=== PATIENT | male | born 1945 | race Native Hawaiian/Other Pacific Islander ===

== ENCOUNTER 2016-10-30 10:42 | Outpatient (CLI) | payer OTHER | END 2016-10-30 12:00 | disposition home or self-care (01) | LOC: RAD 10:42 → LAB 10:42 → RAD 12:00 | DX: E11.9 Type 2 diabetes mellitus without complications (principal); M25.512 Pain in left shoulder | CPT/HCPCS: 36415; 83036 ==

== ENCOUNTER 2018-06-26 09:32 | Outpatient (CLI) | payer OTHER | END 2018-06-26 22:48 | disposition home or self-care (01) | LOC: RAD 09:32 | DX: R06.02 Shortness of breath (principal) ==

== ENCOUNTER 2018-07-07 08:56 | Outpatient (CLI) | payer OTHER | END 2018-07-07 19:12 | disposition home or self-care (01) | LOC: RESP 08:56 | DX: R06.02 Shortness of breath (principal) | CPT/HCPCS: 93306 ==

== ENCOUNTER 2018-12-03 08:43 | Day surgery (SDC) | payer OTHER ==
[2018-12-03 09:30] LABS: PLATELET COUNT 168 K/uL (142-355)
[2018-12-03 09:38] LABS: POTASSIUM 3.8 mmol/L (3.6-5.2)
== END 2018-12-03 12:25 | disposition home or self-care (01) ==
LOC: OR 08:43
PROVIDERS: Internal Medicine
PROC: 0DJD8ZZ Inspection of Lower Intestinal Tract, Via Natural or Artificial Opening Endoscopic (ICD-10-PCS; principal; 2018-12-03)
DX: K59.09 Other constipation (principal); K57.30 Diverticulosis of large intestine without perforation or abscess without bleeding
CPT/HCPCS: 80053; 85027

== ENCOUNTER 2019-08-10 13:34 | Outpatient (CLI) | payer OTHER ==
[2019-08-10 14:01] LABS: PLATELET COUNT 174 K/uL (142-355)
[2019-08-10 14:30] LABS: POTASSIUM 4.4 mmol/L (3.6-5.2)
== END 2019-08-10 19:05 | disposition home or self-care (01) ==
LOC: LAB 13:34
PROVIDERS: Nurse Practitioner Family
DX: E11.9 Type 2 diabetes mellitus without complications (principal); E78.49 Other hyperlipidemia; Z12.5 Encounter for screening for malignant neoplasm of prostate; N40.0 Benign prostatic hyperplasia without lower urinary tract symptoms; E55.9 Vitamin D deficiency, unspecified; R06.02 Shortness of breath
CPT/HCPCS: 80053; 80061; 82306; 83036; 84153; 84443; 85027

== ENCOUNTER 2020-08-22 09:43 | Outpatient (CLI) | payer OTHER | END 2020-08-22 20:15 | disposition home or self-care (01) | LOC: US 09:43 | PROVIDERS: ATTEND Internal Medicine | DX: Z00.00 Encounter for general adult medical examination without abnormal findings (principal); I65.29 Occlusion and stenosis of unspecified carotid artery ==

== ENCOUNTER 2021-09-26 16:18 | Outpatient (CLI) | payer OTHER ==
[2021-09-26 17:02] LABS: PLATELET COUNT 130 K/uL (142-355)
[2021-09-26 17:28] LABS: POTASSIUM 4.6 mmol/L (3.6-5.2)
== END 2021-09-26 21:44 | disposition home or self-care (01) ==
LOC: LAB 16:18
PROVIDERS: ATTEND Internal Medicine
DX: E11.9 Type 2 diabetes mellitus without complications (principal); E78.49 Other hyperlipidemia; K21.9 Gastro-esophageal reflux disease without esophagitis; I65.29 Occlusion and stenosis of unspecified carotid artery; E55.9 Vitamin D deficiency, unspecified; D51.0 Vitamin B12 deficiency anemia due to intrinsic factor deficiency; D50.8 Other iron deficiency anemias; R53.83 Other fatigue; M79.10 Myalgia, unspecified site; R39.12 Poor urinary stream; R68.89 Other general symptoms and signs
CPT/HCPCS: 80053; 80061; 82306; 82607; 83036; 83540; 84153; 84439; 84443; 85027

== ENCOUNTER 2022-06-21 10:44 | Outpatient (CLI) | payer OTHER ==
[2022-06-21 11:20] LABS: POTASSIUM 3.7 mmol/L (3.6-5.2)
== END 2022-06-21 19:30 | disposition home or self-care (01) ==
LOC: LABW 10:44
PROVIDERS: ATTEND Internal Medicine Cardiovascular Disease
DX: Z79.899 Other long term (current) drug therapy (principal); R06.02 Shortness of breath
CPT/HCPCS: 36415; 80048; 83880

== ENCOUNTER 2022-07-04 08:39 | Outpatient (CLI) | payer OTHER | END 2022-07-04 19:22 | disposition home or self-care (01) | LOC: RESP 08:39 | PROVIDERS: ATTEND Internal Medicine Cardiovascular Disease | DX: I10 Essential (primary) hypertension (principal) ==

== ENCOUNTER 2022-08-06 11:54 | Emergency (ER) | payer OTHER ==
[~2022-08-06] VITALS: Ht 185.4 cm; Wt 117.9 kg
[2022-08-06 12:00] VITALS: BP 164/20; TEMP 98.7
[2022-08-06 13:02] LABS: PLATELET COUNT 149 K/uL (142-355)
[2022-08-06 13:19] LABS: POTASSIUM 3.8 mmol/L (3.6-5.2)
== END 2022-08-06 14:34 | disposition home or self-care (01) ==
LOC: ED 11:54
PROVIDERS: Emergency Medicine
DX: M79.18 Myalgia, other site (principal); Z79.1 Long term (current) use of non-steroidal anti-inflammatories (NSAID); Z51.81 Encounter for therapeutic drug level monitoring
CPT/HCPCS: 80053; 80307; 81002; 82550; 84484; 85027; 96372; 99283; J1885

== ENCOUNTER 2022-08-28 18:08 | Emergency (ER) | payer OTHER | END 2022-08-28 20:23 | disposition home or self-care (01) | LOC: ED 18:08 | PROC: 0HQLXZZ Repair Left Lower Leg Skin, External Approach (ICD-10-PCS; principal; 2022-08-28) | DX: S81.812A Laceration without foreign body, left lower leg, initial encounter (principal); W45.8XXA Other foreign body or object entering through skin, initial encounter; Y92.89 Other specified places as the place of occurrence of the external cause | CPT/HCPCS: 90471; 99283 ==